=== PATIENT | female | born 1985 | race Caucasian/White ===

== ENCOUNTER 2019-11-06 09:21 | Emergency (ER) | payer SELFPAY, OTHER ==
[2019-11-06] MEDS ORDERED: IPRATROPIUM BROM 0.5MG/2.5ML ONE (10:16)
[2019-11-06] MEDS ORDERED: ALBUTEROL 2.5 MG/3 ML NEB SOL ONE (10:17)
[2019-11-06] MEDS ORDERED: HYDROCODONE/CHLORPHEN 5 ML/OSYR ONE (10:17)
--- NOTE | 2019-11-06 10:38 | RAD REPORT ---
EXAM DESCRIPTION: RAD - Chest Single View - 11/06/2019 10:26 am CLINICAL HISTORY: SOB Chest pain. COMPARISON: No comparisons FINDINGS: Portable technique limits examination quality. The lungs are grossly clear. The heart is normal in size. No displaced fractures. IMPRESSION: No acute intrathoracic process suspected.
[2019-11-06] MEDS ORDERED: dexAMETHasone 10 MG/ML VIAL ONE (11:58)
--- NOTE | 2019-11-06 12:04 | ER ---
Nurse's Notes [facility] Name: Florinda Coleman Age: 34 yrs Sex: Female : 1985 Arrival Date: 11/06/2019 Time: 09:28 Bed 4 Private MD: Diagnosis: Acute upper respiratory infection, unspecified Presentation: 11/05 09:46 Chief complaint: Patient states: cough, SOB, sore throat, feels like she has a sinus iw infection, has a lot of congestion, no fever, vomited yesterday but none today. Coronavirus screen: cough unrelated to allergies, difficulty breathing, headache, shortness of breath, sore throat, Client presents with at least one sign or symptom that may indicate coronavirus-19. Standard/surgical mask placed on the client. Provider contacted for isolation considerations. Ebola Screen: Patient negative for fever greater than or equal to 101.5 degrees Fahrenheit, and additional compatible Ebola Virus Disease symptoms Patient denies exposure to infectious person. Patient denies travel to an Ebola-affected area in the 21 days before illness onset. No symptoms or risks identified at this time. Initial Sepsis Screen: Does the patient meet any 2 criteria? No. Patient's initial sepsis screen is negative. Does the patient have a suspected source of infection? No. Patient's initial sepsis screen is negative. Risk Assessment: Do you want to hurt yourself or someone else? Patient reports no desire to harm self or others. Onset of symptoms was November 05, 2019. 09:46 Method Of Arrival: Ambulatory iw 09:46 Acuity: JADE 3 iw Triage Assessment: 09:50 General: Appears distressed, uncomfortable, Behavior is cooperative, appropriate for bp age, anxious. Pain: Denies pain. EENT: No deficits noted. Neuro: No deficits noted. Cardiovascular: No deficits noted. Respiratory: Reports shortness of breath cough that is Onset: The symptoms/episode began/occurred at an unknown time. the patient has moderate shortness of breath. GI: No signs and/or symptoms were reported involving the gastrointestinal system. : No signs and/or symptoms were reported regarding the genitourinary system. Derm: No deficits noted. Musculoskeletal: No deficits noted. Historical: - Allergies: 09:49 No Known Allergies; iw - Home Meds: 09:49 None [Active]; iw - PMHx: 09:49 None; iw - PSHx: 09:49 None; iw - Immunization history:: Adult Immunizations not up to date. - Social history:: Smoking status: Patient reports the use of cigarette tobacco products, smokes one pack cigarettes per day. Screenin:50 Abuse screen: Denies threats or abuse. Denies injuries from another. Nutritional bp screening: No deficits noted. Tuberculosis screening: No symptoms or risk factors identified. Fall Risk None identified. Assessment: 09:50 General: SEE TRIAGE NOTE. bp 09:50 Cardiovascular: Rhythm is sinus rhythm. Respiratory: Airway is patent Respiratory bp effort is even, unlabored, Breath sounds are coarse bilaterally. 11:00 Reassessment: ALL CURRENT ORDERS COMPLETED, DISPO PENDING. bp 12:24 Reassessment: PT D/C HOME AMBULATORY WITH FAMILY, DX WITH VIRAL URI. bp Vital Signs: 09:46 BP 124 / 78; Pulse 100; Resp 19 S; Temp 98.6; Pulse Ox 99% on R/A; iw 10:00 BP 119 / 100; Pulse 93; Resp 16; Pulse Ox 100% ; bp 11:00 BP 106 / 64; Pulse 106; Resp 16; Pulse Ox 97% ; bp 12:00 BP 97 / 64; Pulse 83; Resp 17; Temp 98.5; Pulse Ox 98% ; bp ED Course: 09:28 Patient arrived in ED. mr 09:36 Delroy Carson NP is PHCP. pm1 09:36 Iam Perez MD is Attending Physician. pm1 09:49 Triage completed. iw 09:49 Arm band placed on. iw 09:50 Grey Servin, ADIEL is Primary Nurse. bp 09:50 Patient has correct armband on for positive identification. Bed in low position. Call bp light in reach. Side rails up X2. 10:25 CXR XRAY In Process Unspecified. EDMS 12:26 No provider procedures requiring assistance completed. Patient did not have IV access bp during this emergency room visit. Administered Medications: 10:00 Drug: Tussionex Pennkinetic ER 5 ml Route: PO; bp 10:19 Follow up: Response: No adverse reaction bp 10:00 Drug: Albuterol - atroVENT (3:1) (2.5 mg - 0.5 mg) 3 ml Route: Nebulizer; bp 10:19 Follow up: Response: No adverse reaction bp 11:30 Drug: Decadron - Dexamethasone 10 mg Route: IVP; Site: Other; bp 11:48 Follow up: Response: No adverse reaction bp Outcome: 12:04 Discharge ordered by . pm1 12:26 Discharged to home ambulatory, with family. bp 12:26 Condition: stable 12:26 Discharge instructions given to patient, Instructed on discharge instructions, follow up and referral plans. medication usage, Demonstrated understanding of instructions, follow-up care, medications, Prescriptions given X 3. 12:26 Patient left the ED. bp Signatures: Dispatcher [employer] [facility] Yenifer Bazan Irene, RN RN iw Delroy Carson NP [employer] SITE MANAGER pm1 Grey Servin RN RN bp
--- NOTE | 2019-11-06 12:05 | EDPHYS ---
Physician Documentation [facility] Name: Florinda Coleman Age: 34 yrs Sex: Female : 1985 Arrival Date: 11/06/2019 Time: 09:28 Bed 4 Private MD: ED Physician Iam Perez HPI: 11/05 09:47 This 34 yrs old Female presents to ER via Ambulatory with complaints of pm1 Cough, Breathing Difficulty, Headache. 09:47 The patient or guardian reports cough, with productive sputum, that is green, shortness pm1 of breath. Onset: The symptoms/episode began/occurred yesterday. Modifying factors: The symptoms are alleviated by nothing, the symptoms are aggravated by nothing. Associated signs and symptoms: Pertinent positives: rhinorrhea, sore throat, sinus congestion. Vomiting yesterday that has resolved, Pertinent negatives: chest pain, diarrhea, fever. The patient has not recently seen a physician. Denies known sick contacts. Historical: - Allergies: 09:49 No Known Allergies; iw - Home Meds: 09:49 None [Active]; iw - PMHx: 09:49 None; iw - PSHx: 09:49 None; iw - Immunization history:: Adult Immunizations not up to date. - Social history:: Smoking status: Patient reports the use of cigarette tobacco products, smokes one pack cigarettes per day. ROS: 09:47 Constitutional: Negative for fever, chills, and weight loss, Eyes: Negative for injury, pm1 pain, redness, and discharge. 09:47 Neck: Negative for injury, pain, and swelling, Cardiovascular: Negative for chest pain, palpitations, and edema. 09:47 Abdomen/GI: Negative for abdominal pain, nausea, vomiting, diarrhea, and constipation, Back: Negative for injury and pain, MS/Extremity: Negative for injury and deformity, Skin: Negative for injury, rash, and discoloration. 09:47 ENT: Positive for rhinorrhea, sinus congestion, sinus pain, sore throat. 09:47 Respiratory: Positive for cough, with green sputum, shortness of breath. 09:47 Neuro: Positive for headache, Negative for numbness, tingling, weakness. pm1 Exam: 09:47 Constitutional: This is a well developed, well nourished patient who is awake, alert, pm1 and in no acute distress. Head/Face: Normocephalic, atraumatic. ENT: Nares patent. No nasal discharge, no septal abnormalities noted. Tympanic membranes are normal and external auditory canals are clear. Oropharynx with no redness, swelling, or masses, exudates, or evidence of obstruction, uvula midline. Mucous membranes moist. Neck: Trachea midline, no thyromegaly or masses palpated, and no cervical lymphadenopathy. Supple, full range of motion without nuchal rigidity, or vertebral point tenderness. No Meningismus. 09:47 Back: No spinal tenderness. No costovertebral tenderness. Full range of motion. Skin: Warm, dry with normal turgor. Normal color with no rashes, no lesions, and no evidence of cellulitis. MS/ Extremity: Pulses equal, no cyanosis. Neurovascular intact. Full, normal range of motion. 09:47 Cardiovascular: Exam negative for acute changes, Rate: normal, Rhythm: regular, Pulses: no pulse deficits are appreciated. 09:47 Respiratory: Exam negative for acute changes, respiratory distress, shortness of breath, Breath sounds: are clear throughout, no bronchial sounds, no decreased breath sounds, no rales, rhonchi, no wheezing. 09:47 Abdomen/GI: Exam negative for acute changes, Inspection: abdomen appears normal, Palpation: abdomen is soft and non-tender, in all quadrants. 09:47 Neuro: Exam negative for acute changes, Orientation: is normal, Mentation: is normal, Motor: is normal, Gait: is steady, at a normal pace, without difficulty. Vital Signs: 09:46 BP 124 / 78; Pulse 100; Resp 19 S; Temp 98.6; Pulse Ox 99% on R/A; iw 10:00 BP 119 / 100; Pulse 93; Resp 16; Pulse Ox 100% ; bp 11:00 BP 106 / 64; Pulse 106; Resp 16; Pulse Ox 97% ; bp 12:00 BP 97 / 64; Pulse 83; Resp 17; Temp 98.5; Pulse Ox 98% ; bp MDM: 09:39 Patient medically screened. pm1 12:03 Data reviewed: vital signs. Data interpreted: Pulse oximetry: on room air is 97 %. pm1 Interpretation: normal. Counseling: I had a detailed discussion with the patient and/or guardian regarding: the historical points, exam findings, and any diagnostic results supporting the discharge/admit diagnosis, lab results, radiology results, the need for outpatient follow up, to return to the emergency department if symptoms worsen or persist or if there are any questions or concerns that arise at home, smoking cessation. 11/05 09:47 Order name: COVID-19 pm1 11/05 09:47 Order name: Flu; Complete Time: 12:03 pm1 11/05 09:47 Order name: CXR XRAY; Complete Time: 11:00 pm1 11/05 09:47 Order name: Strep; Complete Time: 11:54 pm1 11/05 11:54 Order name: Throat Culture EDMS 11/05 09:47 Order name: Droplet/Contact Precautions; Complete Time: 09:58 pm1 11/05 09:47 Order name: Labs collected and sent; Complete Time: 10:15 pm1 Administered Medications: 10:00 Drug: Tussionex Pennkinetic ER 5 ml Route: PO; bp 10:19 Follow up: Response: No adverse reaction bp 10:00 Drug: Albuterol - atroVENT (3:1) (2.5 mg - 0.5 mg) 3 ml Route: Nebulizer; bp 10:19 Follow up: Response: No adverse reaction bp 11:30 Drug: Decadron - Dexamethasone 10 mg Route: IVP; Site: Other; bp 11:48 Follow up: Response: No adverse reaction bp Disposition: 13:16 Co-signature as Attending Physician, Iam Perez MD. rn Disposition: 11/06/19 12:04 Discharged to Home. Impression: Acute upper respiratory infection, unspecified. - Condition is Stable. - Discharge Instructions: Steps to Quit Smoking, Upper Respiratory Infection, Adult, COVID-19. - Prescriptions for Albuterol Sulfate 90 mcg/actuation - inhale 1-2 puff by INHALATION route every 4-6 hours; 1 Inhaler. Guaifenesin AC 10- 100 mg/5 mL Oral Liquid - take 10 milliliter by ORAL route every 4 hours As needed; 240 milliliter. Prednisone 20 mg Oral Tablet - take 1 tablet by ORAL route every 12 hours for 7 days; 14 tablet. - Work release form, Medication Reconciliation Form, Thank You Letter, Antibiotic Education, Prescription Opioid Use form. - Follow up: Emergency Department; When: As needed; Reason: Worsening of condition. Follow up: Private Physician; When: 2 - 3 days; Reason: Recheck today's complaints, Continuance of care, Re-evaluation by your physician. - Problem is new. - Symptoms have improved. Signatures: Dispatcher [employer] Aditi Florence, RN RN Iam Garcia MD MD rn Marinas, Patrick, CAFETERIA TABLE ATTENDANT CAFETERIA TABLE ATTENDANT pm1 Grey Servin RN RN bp Corrections: (The following items were deleted from the chart) 12:26 12:04 11/06/2019 12:04 Discharged to Home. Impression: Acute upper respiratory bp infection, unspecified. Condition is Stable. Forms are Medication Reconciliation Form, Thank You Letter, Antibiotic Education, Prescription Opioid Use. Follow up: Emergency Department; When: As needed; Reason: Worsening of condition. Follow up: Private Physician; When: 2 - 3 days; Reason: Recheck today's complaints, Continuance of care, Re-evaluation by your physician. Problem is new. Symptoms have improved. pm1 12:40 09:47 Abdomen/GI: Negative for abdominal pain, nausea, vomiting, diarrhea, and pm1 constipation, Back: Negative for injury and pain, MS/Extremity: Negative for injury and deformity, Skin: Negative for injury, rash, and discoloration, Neuro: Negative for headache, weakness, numbness, tingling, and seizure, pm1
[2019-11-06 13:04] VITALS: BP 97/64; TEMP 98.5; O2SAT 98
== END 2019-11-06 12:26 | disposition home or self-care (01) ==
LOC: ER 09:21
DX: J06.9 Acute upper respiratory infection, unspecified (principal); Z20.828 Contact with and (suspected) exposure to other viral communicable diseases; F17.210 Nicotine dependence, cigarettes, uncomplicated
CPT/HCPCS: 71045; 87070; 87081; 87804; 96374; 99284; J1100; U0002

== ENCOUNTER 2019-11-25 13:20 | Emergency (ER) | payer OTHER, SELFPAY ==
--- NOTE | 2019-11-25 13:30 | ER ---
Nurse's Notes [facility] Name: Florinda Coleman Age: 34 yrs Sex: Female : 1985 Arrival Date: 11/25/2019 Time: 13:22 Bed 7 Private MD: Diagnosis: Periapical abscess/dental caries Presentation: 11/24 13:25 Chief complaint: Patient states: Left upper jaw pain for 2 days. Swelling started ll1 overnight. No fever. Pain into nasal are now also. Coronavirus screen: Client denies travel out of the [place] in the last 14 days. cough unrelated to allergies, Client presents with at least one sign or symptom that may indicate coronavirus-19. Standard/surgical mask placed on the client. Ebola Screen: Patient denies travel to an Ebola-affected area in the 21 days before illness onset. Initial Sepsis Screen: Does the patient meet any 2 criteria? HR > 90 bpm. No. Patient's initial sepsis screen is negative. Does the patient have a suspected source of infection? Yes: Other: jaw/tooth. Risk Assessment: Do you want to hurt yourself or someone else? Patient reports no desire to harm self or others. Onset of symptoms was November 24, 2019. 13:25 Method Of Arrival: Ambulatory ll1 13:25 Acuity: JADE 4 ll1 Historical: - Allergies: 13:28 No Known Allergies; ll1 - PSHx: 13:28 Cholecystectomy; Tubal ligation; ll1 - Immunization history:: Flu vaccine is not up to date. - Social history:: Smoking status: Patient reports the use of cigarette tobacco products, smokes one-half pack cigarettes per day. Screenin:40 Abuse screen: Denies threats or abuse. vg1 13:40 Nutritional screening: No deficits noted. Tuberculosis screening: No symptoms or risk vg1 factors identified. Fall Risk No fall in past 12 months (0 pts). No secondary diagnosis (0 pts). No IV (0 pts). Ambulatory Aid- None/Bed Rest/Nurse Assist (0 pts). Gait- Normal/Bed Rest/Wheelchair (0 pts) Mental Status- Oriented to own ability (0 pts). Total Javed Fall Scale indicates No Risk (0-24 pts). Assessment: 13:40 General: Appears uncomfortable, Behavior is calm, cooperative. Pain: Complains of pain vg1 in gums. Pain level 8/10. Neuro: Level of Consciousness is awake, alert, obeys commands, Oriented to person, place, time, situation, Speech is normal. Cardiovascular: Patient's skin is warm and dry. Respiratory: Airway is patent Respiratory effort is even, unlabored. GI:. EENT: patient c/o gum soreness on left side. Redness noted and swelling.. 13:40 Derm: Skin is pink, warm \T\ dry. Musculoskeletal: Range of motion: intact in all vg1 extremities. Vital Signs: 13:25 BP 125 / 75; Pulse 112; Resp 18; Temp 98.0; Pulse Ox 99% ; Height 5 ft. 7 in. (170.18 ll1 cm); Pain 8/10; 13:45 BP 125 / 75; Pulse 112; Resp 18; Pulse Ox 98% on R/A; Pain 8/10; vg1 ED Course: 13:22 Patient arrived in ED. ds1 13:27 Triage completed. ll1 13:28 [facility]-C [facility] snw 13:28 Duarte Evans MD is Attending Physician. snw 13:28 Arm band placed on Patient placed in an exam room, on a stretcher. ll1 13:32 Miranda Hoffman, ADIEL is Primary Nurse. sv 13:35 Sosa Ibarra, ADIEL is Primary Nurse. sv 13:40 Patient has correct armband on for positive identification. Bed in low position. Call vg1 light in reach. Door closed. 13:40 No provider procedures requiring assistance completed. vg1 13:40 Patient did not have IV access during this emergency room visit. vg1 Administered Medications: 13:45 Drug: Clindamycin 300 mg Route: PO; vg1 13:45 Drug: Raritan 5 mg-325 mg 1 tabs {Note: RASS 1.} Route: PO; vg1 13:45 Drug: Motrin 600 mg Route: PO; vg1 Outcome: 13:29 Discharge ordered by . snw 13:53 Discharged to home ambulatory. vg1 13:53 Condition: good 13:53 Discharge instructions given to patient, Instructed on discharge instructions, follow up and referral plans. medication usage, Demonstrated understanding of instructions, follow-up care, medications, Prescriptions given X 4. 13:59 Patient left the ED. vg1 Signatures: Miranda Hoffman, RN RN sv Damari Mina, MACHINE FEEDER FLOORPERSON-C MACHINE FEEDER FLOORPERSON-Csnw Lennie Corcoran ds1 Sosa Ibarra RN RN vg1 Ranjith Land RN RN ll1 Corrections: (The following items were deleted from the chart) 13:58 13:40 Pain: Complains of pain in gums vg1 vg1
--- NOTE | 2019-11-25 13:30 | EDPHYS ---
Physician Documentation [facility] Name: Florinda Coleman Age: 34 yrs Sex: Female : 1985 Arrival Date: 11/25/2019 Time: 13:22 Bed 7 Private MD: YUKI Physician Duarte Evans HPI: 11/24 13:41 This 34 yrs old Female presents to ER via Ambulatory with complaints of snw Facial Swelling. 13:41 Onset: The symptoms/episode began/occurred gradually. Associated signs and symptoms: snw Pertinent positives: severe dental caries, smokes 1/2 ppd. Modifying factors: The patient symptoms are alleviated by nothing. It is unknown whether or not the patient has had similar symptoms in the past. The patient has not recently seen a physician. 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 Historical: - Allergies: 13:28 No Known Allergies; ll1 - PSHx: 13:28 Cholecystectomy; Tubal ligation; ll1 - Immunization history:: Flu vaccine is not up to date. - Social history:: Smoking status: Patient reports the use of cigarette tobacco products, smokes one-half pack cigarettes per day. ROS: 13:49 Constitutional: Negative for fever, chills, and weight loss, Eyes: Negative for injury, snw pain, redness, and discharge, ENT: Negative for injury, pain, and discharge, + edema to left cheek, no erythema, no fever Neck: Negative for injury, pain, and swelling, Cardiovascular: Negative for chest pain, palpitations, and edema, Respiratory: Negative for shortness of breath, cough, wheezing, and pleuritic chest pain, Abdomen/GI: Negative for abdominal pain, nausea, vomiting, diarrhea, and constipation, Back: Negative for injury and pain, : Negative for injury, bleeding, discharge, and swelling, MS/Extremity: Negative for injury and deformity, Skin: Negative for injury, rash, and discoloration, Neuro: Negative for headache, weakness, numbness, tingling, and seizure. Exam: 13:49 Constitutional: This is a well developed, well nourished patient who is awake, alert, snw and in no acute distress. Head/Face: Normocephalic, atraumatic. tenderness and edema to left maxillary area, no erythema, no warmth Eyes: Pupils equal round and reactive to light, extra-ocular motions intact. Lids and lashes normal. Conjunctiva and sclera are non-icteric and not injected. Cornea within normal limits. Periorbital areas with no swelling, redness, or edema. ENT: Nares patent. No nasal discharge, no septal abnormalities noted. Tympanic membranes are normal and external auditory canals are clear. Oropharynx with no redness, swelling, or masses, exudates, or evidence of obstruction, uvula midline. Mucous membranes moist. Severe widespread dental caries and gingivitis, upper and lower left tender with edema Neck: Trachea midline, no thyromegaly or masses palpated, and no cervical lymphadenopathy. Supple, full range of motion without nuchal rigidity, or vertebral point tenderness. No Meningismus. Chest/axilla: Normal chest wall appearance and motion. Nontender with no deformity. No lesions are appreciated. Cardiovascular: Regular rate and rhythm with a normal S1 and S2. No gallops, murmurs, or rubs. Normal PMI, no JVD. No pulse deficits. Respiratory: Lungs have equal breath sounds bilaterally, clear to auscultation and percussion. No rales, rhonchi or wheezes noted. No increased work of breathing, no retractions or nasal flaring. Abdomen/GI: Soft, non-tender, with normal bowel sounds. No distension or tympany. No guarding or rebound. No evidence of tenderness throughout. Back: No spinal tenderness. No costovertebral tenderness. Full range of motion. Skin: Warm, dry with normal turgor. Normal color with no rashes, no lesions, and no evidence of cellulitis. MS/ Extremity: Pulses equal, no cyanosis. Neurovascular intact. Full, normal range of motion. Neuro: Awake and alert, GCS 15, oriented to person, place, time, and situation. Cranial nerves II-XII grossly intact. Motor strength 5/5 in all extremities. Sensory grossly intact. Cerebellar exam normal. Normal gait. Psych: Awake, alert, with orientation to person, place and time. Behavior, mood, and affect are within normal limits. Vital Signs: 13:25 BP 125 / 75; Pulse 112; Resp 18; Temp 98.0; Pulse Ox 99% ; Height 5 ft. 7 in. (170.18 ll1 cm); Pain 8/10; 13:45 BP 125 / 75; Pulse 112; Resp 18; Pulse Ox 98% on R/A; Pain 8/10; vg1 MDM: 13:29 Patient medically screened. snw 13:40 Data reviewed: vital signs, nurses notes. Data interpreted: Pulse oximetry: on room air snw is 99 %. Interpretation: normal. Counseling: I had a detailed discussion with the patient and/or guardian regarding: the historical points, exam findings, and any diagnostic results supporting the discharge/admit diagnosis, the need for outpatient follow up, for definitive care, to return to the emergency department if symptoms worsen or persist or if there are any questions or concerns that arise at home. Response to treatment: the patient's symptoms have mildly improved after treatment. Special discussion: Based on the history and exam findings, there is no indication for further emergent testing or inpatient evaluation. I discussed with the patient/guardian the need to see a dentist for further evaluation of the symptoms. Administered Medications: 13:45 Drug: Clindamycin 300 mg Route: PO; vg1 13:45 Drug: Blanchard 5 mg-325 mg 1 tabs {Note: RASS 1.} Route: PO; vg1 13:45 Drug: Motrin 600 mg Route: PO; vg1 Disposition: 18:01 Co-signature as Attending Physician, Duarte Evans MD I agree with the assessment and kaylin plan of care. Disposition: 11/25/19 13:29 Discharged to Home. Impression: Periapical abscess/dental caries. - Condition is Stable. - Discharge Instructions: Dental Pain, VIS, Tetanus, Diphtheria (Td) - CDC, Diet and Dental Disease, Cryotherapy, Rehydration, Adult, Preventive Dental Care, Adult. - Prescriptions for Clindamycin HCl 300 mg Oral Capsule - take 1 capsule by ORAL route every 6 hours for 10 days; 40 capsule. Ultram 50 mg Oral Tablet - take 1 tablet by ORAL route every 6 hours As needed; 12 tablet. Motrin IB 200 mg Oral Tablet - take 1 tablet by ORAL route every 6 hours As needed as needed with food; 40 tablet. chlorhexidine gluconate 0.12 % Mucous Membrane mouthwash - place 15 milliliter by MUCOUS MEMBRANE route 2 times per day after brushing teeth, swish in mouth for 30 seconds then spit out; 480 milliliter. - Medication Reconciliation Form, Thank You Letter, Antibiotic Education, Prescription Opioid Use form. - Follow up: Emergency Department; When: As needed; Reason: Worsening of condition. Follow up: Private Physician; When: 2 - 3 days; Reason: Recheck today's complaints, Continuance of care, Re-evaluation by your physician. Signatures: Duarte Evans MD MD cha Waters, Shelly, NUCLEAR CONTROL ROOM OPERATOR-C NUCLEAR CONTROL ROOM OPERATOR-Csnw Sosa Ibarra, RN RN vg1 Ranjith Land RN RN ll1 Corrections: (The following items were deleted from the chart) 13:59 13:29 11/25/2019 13:29 Discharged to Home. Impression: Periapical abscess/dental vg1 caries. Condition is Stable. Forms are Medication Reconciliation Form, Thank You Letter, Antibiotic Education, Prescription Opioid Use. Follow up: Emergency Department; When: As needed; Reason: Worsening of condition. Follow up: Private Physician; When: 2 - 3 days; Reason: Recheck today's complaints, Continuance of care, Re-evaluation by your physician. snw
[2019-11-25] MEDS ORDERED: IBUPROFEN 200 MG TAB PO ONE (13:52)
[2019-11-25] MEDS ORDERED: HYDROCODONE/APAP 5/325 MG TAB ONE (13:52)
[2019-11-25 14:14] VITALS: BP 125/75; TEMP 98; O2SAT 99
== END 2019-11-25 13:59 | disposition home or self-care (01) ==
LOC: ER 13:20
DX: K04.7 Periapical abscess without sinus (principal); K02.9 Dental caries, unspecified; F17.210 Nicotine dependence, cigarettes, uncomplicated
CPT/HCPCS: 99283

== ENCOUNTER 2020-01-26 12:50 | Emergency (ER) | payer OTHER, SELFPAY ==
[2020-01-26] MEDS ORDERED: MORPHINE 4 MG/ML SYR ONE (15:04)
[2020-01-26] MEDS ORDERED: ONDANSETRON 4 MG/2 ML VIAL ONE (15:04)
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
[2020-01-31 06:26] VITALS: BP 108/77; TEMP 98.1; O2SAT 99
== END 2020-01-26 16:45 | disposition home or self-care (01) ==
LOC: ER 12:50
DX: S30.1XXA Contusion of abdominal wall, initial encounter (principal); V89.2XXA Person injured in unspecified motor-vehicle accident, traffic, initial encounter; F17.210 Nicotine dependence, cigarettes, uncomplicated
CPT/HCPCS: 82565; 74177; 96375; 96374; 99284; Q9967; J2405

== ENCOUNTER 2020-01-29 15:09 | Emergency (ER) | payer OTHER, SELFPAY ==
[2020-01-29 16:31] LABS: Absolute Lymphocytes (CBC) 2.9 K/uL (0.7-4.9); Basophils % 0.3 % (0-1.3); Hematocrit 35.3 % (36.0-45.0); Lymphocytes % 26.1 % (15.3-44.8); MPV 9.1 fL (7.6-11.3); RBC Red Blood Cell Count 3.95 M/uL (3.86-4.86)
[2020-01-29] MEDS ORDERED: KETOROLAC 30 MG/ML INJ ONE (16:39)
[2020-01-29 16:54] LABS: ALT/SGPT 26 U/L (12-78); AST/SGOT 15 U/L (15-37); Albumin 3.6 g/dL (3.4-5.0); Alkaline Phosphatase 73 U/L (45-117); BUN Blood Urea Nitrogen 14 mg/dL (7-18); Bicarbonate 26 mmol/L (21-32); Bilirubin Direct < 0.1 mg/dL (0-0.2); Bilirubin Total 0.3 mg/dL (0.2-1.0); Glucose Level 78 mg/dL (74-106); Potassium 3.9 mmol/L (3.5-5.1); Protein, Total 7.2 g/dL (6.4-8.2); Sodium Level 140 mmol/L (136-145); Troponin (Emerg Dept Use Only) < 0.02 ng/mL (0.0-0.045)
--- NOTE | 2020-01-29 17:01 | RAD REPORT ---
EXAM DESCRIPTION: RAD - Chest Single View - 01/29/2020 4:49 pm CLINICAL HISTORY: CHEST PAIN Chest pain. COMPARISON: Chest Single View dated 11/06/2019 FINDINGS: Portable technique limits examination quality. The lungs are grossly clear. The heart is normal in size. No displaced fractures. IMPRESSION: No acute intrathoracic process suspected.
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
[2020-01-29] MEDS ORDERED: HYDROCODONE/APAP 10/325 TAB ONE (17:43)
--- NOTE | 2020-01-30 19:34 | EKG ---
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
[2020-02-01 11:00] VITALS: TEMP 97.8
[2020-02-01 11:03] VITALS: BP 100/69; O2SAT 99
== END 2020-01-29 17:37 | disposition home or self-care (01) ==
LOC: ER 15:09
DX: R07.9 Chest pain, unspecified (principal); F17.210 Nicotine dependence, cigarettes, uncomplicated; V89.2XXA Person injured in unspecified motor-vehicle accident, traffic, initial encounter
CPT/HCPCS: 36415; 71045; 80048; 80076; 84484; 85025; 93005; 96374; 99285

== ENCOUNTER 2020-06-24 16:01 | Emergency (ER) | payer SELFPAY ==
--- OUTSIDE RECORDS SUMMARY | 2020-06-24 16:04 | XMS REPORT | Continuity of Care Document ---
:1985 Author Organization [facility] t Address [address] [place] [address] Care Team Providers Name Role Phone Garcia COBIAN Attending Clinician Caty Jacques Attending Clinician Problems This patient has no known problems. Allergies, Adverse Reactions, Alerts This patient has no known allergies or adverse reactions. Medications This patient has no known medications. Procedures This patient has no known procedures. Encounters Start End Encounter Admission Attending Care Care Encounter Source Date/Time Date/Time Type Type Clinicians Facility Department ID 2020-02-05 [facility]02-[id number] 15:13:00 16:33:00 Bo Medina [id number] [place] [id number] [place] [id number] 2020-02-02 2020-02-02 Emergency [place], [facility] [id number] 15:21:00 16:44:00 Lon [place] [id number] [place] [id number] [place] [id number] Results This patient has no known results.
[2020-06-24 19:09] LABS: SARS-COV-2 RT PCR NEGATIVE (NEGATIVE)
--- NOTE | 2020-06-24 20:30 | RAD REPORT ---
EXAM DESCRIPTION: RAD - Chest Single View - 06/24/2020 8:22 pm CLINICAL HISTORY: cough, tb exposure Chest pain. COMPARISON: Chest Single View dated 01/29/2020; Chest Single View dated 11/06/2019 FINDINGS: Portable technique limits examination quality. The lungs are grossly clear. No finding typical tuberculosis seen. The heart is normal in size. No di splaced fractures. IMPRESSION: No acute intrathoracic process suspected.
--- NOTE | 2020-06-24 20:49 | ER ---
Nurse's Notes [facility] Name: Florinda Coleman Age: 35 yrs Sex: Female : 1985 Arrival Date: 06/24/2020 Time: 16:02 Bed 13 Private MD: Diagnosis: Acute upper respiratory infection, unspecified;Acute pharyngitis Presentation: 06/24 16:41 Chief complaint: Patient states: "I have been sick for a couple of weeks. I work for [employer] and i think i need to get tested for TB and for COVID.". Coronavirus screen: cough unrelated to allergies, shortness of breath, Client presents with at least one sign or symptom that may indicate coronavirus-19. Standard/surgical mask placed on the client. Provider contacted for isolation considerations. Ebola Screen: Patient negative for fever greater than or equal to 101.5 degrees Fahrenheit, and additional compatible Ebola Virus Disease symptoms. Initial Sepsis Screen: Does the patient meet any 2 criteria? No. Patient's initial sepsis screen is negative. Does the patient have a suspected source of infection? No. Patient's initial sepsis screen is negative. Risk Assessment: Do you want to hurt yourself or someone else? Patient reports no desire to harm self or others. Onset of symptoms was June 15, 2020. 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 - Social history:: Smoking status: Patient reports the use of cigarette tobacco products, smokes one pack cigarettes per day. Screenin:59 Abuse screen: Denies threats or abuse. Nutritional screening: No deficits noted. kg Tuberculosis screening: No symptoms or risk factors identified. Fall Risk None identified. No fall in past 12 months (0 pts). No secondary diagnosis (0 pts). No IV (0 pts). Ambulatory Aid- None/Bed Rest/Nurse Assist (0 pts). Gait- Normal/Bed Rest/Wheelchair (0 pts) Mental Status- Oriented to own ability (0 pts). Total Javed Fall Scale indicates No Risk (0-24 pts). Assessment: 18:55 General: Appears in no apparent distress. Behavior is calm, cooperative, appropriate kg for age, quiet. Pain: Complains of pain in face, chest and neck Pain radiates to left scapular area, right scapular area, left subscapular area, right subscapular area and mid back area Pain currently is 6 out of 10 on a pain scale. at worst was 8 out of 10 on a pain scale. level that patient reports is acceptable is 5 out of 10 on a pain scale. Quality of pain is described as aching, sharp, stabbing, Pain began gradually. Neuro: No deficits noted. Level of Consciousness is awake, alert, obeys commands, Oriented to person, place, time, situation. Cardiovascular: No deficits noted. Cardiovascular: Heart tones S1 S2 Capillary refill < 3 seconds. Respiratory: No deficits noted. Respiratory: Airway is patent Respiratory effort is even, Breath sounds are clear Breath sounds are diminished bilaterally. Parent/caregiver reports the patient having shortness of breath at rest on exertion cough that is productive, persistent pain with respiration pain with cough. GI: Abdomen is obese, Bowel sounds present X 4 quads. Reports diarrhea. : No deficits noted. EENT: Throat has enlarged tonsils. Derm: No deficits noted. Musculoskeletal: No deficits noted. Vital Signs: 16:43 BP 134 / 88; Pulse 84; Resp 17 S; Temp 97.1(TE); Pulse Ox 99% on R/A; Weight 104.33 kg [facility] (R); Height 5 ft. 7 in. (170.18 cm) (R); Pain 6/10; 19:15 BP 100 / 75; Pulse 73; Resp 18; Pulse Ox 99% ; jm8 21:11 BP 112 / 74; Pulse 70; Resp 16; Pulse Ox 96% on R/A; [facility] 16:43 Body Mass Index 36.02 (104.33 kg, 170.18 cm) [facility] ED Course: 16:02 Patient arrived in ED. as 16:43 Triage completed. d3 16:45 Arm band placed on. [facility] 18:27 Tom Nolasco PA is PHCP. [facility] 18:27 Iam Perez MD is Attending Physician. [facility] 18:32 Mary Mckinney is Primary Nurse. kg 19:01 Patient has correct armband on for positive identification. Bed in low position. Call kg light in reach. Side rails up X 1. 20:22 Chest Single View XRAY In Process Unspecified. EDMS 21:15 No provider procedures requiring assistance completed. Patient did not have IV access jm8 during this emergency room visit. Administered Medications: 21:00 Drug: GI Cocktail without - (Maalox Suspension 30 ml, Lidocaine Liquid 2 % 15 jm8 ml) Route: PO; 21:13 Follow up: Response: No adverse reaction; Medication administered at discharge. jm8 21:00 Drug: Decadron (dexamethasone) 10 mg Route: IM; Site: left deltoid; jm8 21:12 Follow up: Response: No adverse reaction; Medication administered at discharge. jm Outcome: 20:48 Discharge ordered by MD. jmm 21:15 Discharged to home jm8 21:15 Condition: good 21:15 Discharge instructions given to patient, family, Instructed on discharge instructions, follow up and referral plans. medication usage, Demonstrated understanding of instructions, follow-up care, medications, Prescriptions given X 3. 21:16 Patient left the ED. jm8 Signatures: Dispatcher [employer] EDMS Tom Nolasco PA PA jmm Martinez, Amelia as Davies, Jonathon, RN RN Roly Malcolm RN RN jm8 Mary Mckinney kg
--- NOTE | 2020-06-24 20:49 | EDPHYS ---
Physician Documentation [facility] Name: Florinda Coleman Age: 35 yrs Sex: Female : 1985 Arrival Date: 06/24/2020 Time: 16:02 Bed 13 Private MD: ED Physician Iam Perez HPI: 06/24 20:46 This 35 yrs old Female presents to ER via Ambulatory with complaints of jmm Cough, Sore Throat, Shortness Of Breath. 20:46 The patient or guardian reports cough. Onset: The symptoms/episode began/occurred jmm gradually, 2 week(s) ago. Modifying factors: The symptoms are alleviated by nothing, the symptoms are aggravated by nothing. Associated signs and symptoms: Pertinent positives: sore throat. The patient has not experienced similar symptoms in the past. 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 - Social history:: Smoking status: Patient reports the use of cigarette tobacco products, smokes one pack cigarettes per day. ROS: 20:46 Constitutional: Positive for body aches, fatigue. jmm 20:46 ENT: Positive for sore throat. 20:46 Respiratory: Positive for cough. 20:46 All other systems are negative. Exam: 20:46 Constitutional: This is a well developed, well nourished patient who is awake, alert, jmm and in no acute distress. Head/Face: atraumatic. Eyes: EOMI, no conjunctival erythema appreciated 20:46 Neck: Trachea midline, Supple Chest/axilla: Normal chest wall appearance and motion. Cardiovascular: Regular rate and rhythm. No edema appreciated Respiratory: Normal respirations, no respiratory distress appreciated Abdomen/GI: Non distended, soft Back: Normal ROM Skin: General appearance color normal MS/ Extremity: Moves all extremities, no obvious deformities appreciated, no edema noted to the lower extremities Neuro: Awake and alert, normal gait Psych: Behavior is normal, Mood is normal, Patient is cooperative and pleasant 20:46 ENT: Posterior pharynx: erythema, that is mild. Vital Signs: 16:43 BP 134 / 88; Pulse 84; Resp 17 S; Temp 97.1(TE); Pulse Ox 99% on R/A; Weight 104.33 kg jd3 (R); Height 5 ft. 7 in. (170.18 cm) (R); Pain 6/10; 19:15 BP 100 / 75; Pulse 73; Resp 18; Pulse Ox 99% ; jm8 21:11 BP 112 / 74; Pulse 70; Resp 16; Pulse Ox 96% on R/A; jm8 16:43 Body Mass Index 36.02 (104.33 kg, 170.18 cm) jd3 MDM: 18:52 Patient medically screened. [facility] 20:47 Data reviewed: vital signs, nurses notes. Counseling: I had a detailed discussion with kimo the patient and/or guardian regarding: the historical points, exam findings, and any diagnostic results supporting the discharge/admit diagnosis, lab results, radiology results, the need for outpatient follow up, to return to the emergency department if symptoms worsen or persist or if there are any questions or concerns that arise at home. ED course: Patient is alert and non toxic in appearance in the ED. CXR clear. patient advised to follow up with pcp and otherwise given strict return precautions. patient understood and agrees with the plan of care. . 06/24 18:52 Order name: Chest Single View XRAY; Complete Time: 20:34 [facility] 06/24 19:05 Order name: Strep; Complete Time: 20:08 [facility] 06/24 19:09 Order name: COVID-19/FLU A+B; Complete Time: 19:10 [facility] 06/24 20:08 Order name: Throat Culture EDVT Administered Medications: 21:00 Drug: GI Cocktail without - (Maalox Suspension 30 ml, Lidocaine Liquid 2 % 15 jm8 ml) Route: PO; 21:13 Follow up: Response: No adverse reaction; Medication administered at discharge. [facility] 21:00 Drug: Decadron (dexamethasone) 10 mg Route: IM; Site: left deltoid; 8 21:12 Follow up: Response: No adverse reaction; Medication administered at discharge. jm8 Disposition: 06/25 06:51 Co-signature as Attending Physician, Iam Perez MD. rn Disposition: 06/24/20 20:48 Discharged to Home. Impression: Acute upper respiratory infection, unspecified, Acute pharyngitis. - Condition is Stable. - Discharge Instructions: Pharyngitis, Upper Respiratory Infection, Adult. - Prescriptions for Prednisone 20 mg Oral Tablet - take 3 tablet by ORAL route once daily for 5 days; 15 tablet. Zithromax Z- Hernán 250 mg Oral Tablet - take 1 tablet by ORAL route as directed for 5 days Day 1 - take two (2) tablets one time. Day 2, 3, 4 , 5 take one (1) tablet once daily.; 6 tablet. Albuterol Sulfate 90 mcg/actuation - inhale 1-2 puff by INHALATION route every 4-6 hours; 1 Inhaler. - Medication Reconciliation Form, Thank You Letter, Antibiotic Education, Prescription Opioid Use form. - Follow up: Private Physician; When: 2 - 3 days; Reason: Recheck today's complaints, Continuance of care, Re-evaluation by your physician. Signatures: Dispatcher [employer] [facility] Tom Nolasco PA PA jmm Nieto, Roman, MD MD rn Davies, Jonathon, RN RN jd3 Malcaba, Joseph, RN RN jm8 Corrections: (The following items were deleted from the chart) 06/24 18:15 16:47 CORONAVIRUS+MR.LAB.BRZ ordered. [facility] 18:16 16:47 Influenza Screen (A \T\ B)+BA.LAB.BRZ ordered. [facility] 21:16 20:48 06/24/2020 20:48 Discharged to Home. Impression: Acute upper respiratory jm8 infection, unspecified; Acute pharyngitis. Condition is Stable. Forms are Medication Reconciliation Form, Thank You Letter, Antibiotic Education, Prescription Opioid Use. Follow up: Private Physician; When: 2 - 3 days; Reason: Recheck today's complaints, Continuance of care, Re-evaluation by your physician. andree
[2020-06-24] MEDS ORDERED: MAGNES/ALUMIN/SIMET 30ML UCUP ONE (21:08)
[2020-06-24] MEDS ORDERED: dexAMETHasone 10 MG/ML VIAL ONE (21:09)
[2020-06-24] MEDS ORDERED: LIDOCAINE VISCOUS 2% SOLN 15 ML UDC ONE (21:09)
[2020-06-24 22:25] VITALS: TEMP 97.1
[2020-06-24 22:28] VITALS: BP 112/74; O2SAT 96
== END 2020-06-24 21:16 | disposition home or self-care (01) ==
LOC: ER 16:01
DX: J06.9 Acute upper respiratory infection, unspecified (principal); J02.9 Acute pharyngitis, unspecified; F17.210 Nicotine dependence, cigarettes, uncomplicated; Z20.822 Contact with and (suspected) exposure to COVID-19
CPT/HCPCS: 0240U; 71045; 87070; 87081; 96372; 99283; J1100